=== PATIENT | female | born 1995 | race Caucasian/White ===

== ENCOUNTER 2018-01-12 17:19 | Emergency (ER) | payer OTHER | END 2018-01-12 18:01 | disposition home or self-care (01) | LOC: E/R 18:01 | DX: R21 Rash and other nonspecific skin eruption (principal) | CPT/HCPCS: 99283; Z7502 ==

== ENCOUNTER 2018-08-27 13:46 | Emergency (ER) | payer SELFPAY, OTHER | END 2018-08-27 14:44 | disposition left against medical advice (07) | LOC: FTE 13:46 | DX: Z53.21 Procedure and treatment not carried out due to patient leaving prior to being seen by health care provider (principal) ==